=== PATIENT | male | born 1965 | race Caucasian/White ===

== ENCOUNTER → 2020-08-01 | Outpatient (CLI) | payer OTHER ==
--- NOTE | 2020-08-01 20:09 | RAD ---
EXAM: Right shoulder, 4 views. HISTORY: Pain. COMPARISON: None. FINDINGS: 4 views of the right shoulder obtained. There is moderate acromioclavicular and glenohumera l subchondral sclerosis and spurring. There is decreased subacromial space likely due to chronic rota tor cuff pathology. There is a corticated ossicle superior to the glenohumeral joint space due to a j oint loose body. IMPRESSION: 1. Moderate acromioclavicular and glenohumeral osteoarthritis with suspected joint loose body. 2. Decreased subacromial space suggesting chronic rotator cuff pathology. Electronically signed by: Letty Ruano MD (08/01/2020 8:07 PM) [facility]
== END ==
LOC: DXRAD 15:18
PROVIDERS: ATTEND Orthopaedic Surgery
DX: M19.011 Primary osteoarthritis, right shoulder (principal); M77.8 Other enthesopathies, not elsewhere classified; M25.811 Other specified joint disorders, right shoulder
CPT/HCPCS: 73030

== ENCOUNTER → 2021-07-13 | Outpatient (CLI) | payer OTHER ==
--- NOTE | 2021-07-14 12:22 | RAD ---
XR SHOULDER_RIGHT 2+ VIEWS History: Reason: CHRONIC PAIN, ROTATOR CUFF REPAIR, 10 YRS AGO / Spl. Instructions: / History: Technique: 3 views right shoulder Comparison: August 10, 2020 Findings: Moderate right glenohumeral degenerative changes with joint space narrowing and marginal osteophyte f ormation. Increased superior migration of the humeral head in relation to the glenoid. Moderate acrom ioclavicular DJD. No dislocation. No acute fracture. Impression: 1. Moderate glenohumeral DJD. 2. Increased superior migration of the humeral head in relation to the glenoid, may indicate chronic rotator cuff tear. Electronically signed by: Jorge Yusuf DO (07/14/2021 10:49 AM) [id number]
== END ==
LOC: RAD 15:36
PROVIDERS: ATTEND Orthopaedic Surgery
DX: M19.011 Primary osteoarthritis, right shoulder (principal); M25.711 Osteophyte, right shoulder; M25.811 Other specified joint disorders, right shoulder
CPT/HCPCS: 73030